=== PATIENT | male | born 1945 | race Caucasian/White ===

== ENCOUNTER 2021-04-30 11:08 | Emergency (ER) | payer MEDICARE ==
[~2021-04-30] VITALS: Ht 180.3 cm; Wt 66.2 kg
--- NOTE | 2021-04-30 11:33 | NUR ---
The patient is [id number] home c/o LLE/groin area pain s/p trip and fall last night. Rates pain 8/10. No apparent trauma noted. Will continue to monitor the patient.
--- NOTE | 2021-04-30 11:35 | NUR ---
DR DENNIS AT THE BEDSIDE
[2021-04-30 13:01] VITALS: BP 135/75
--- NOTE | 2021-04-30 13:01 | NUR ---
Patient discharged to home in stable condition. Written and verbal after care instructions given. Patient verbalizes understanding of instruction. The patient is picked up going home with .
[2021-05-07] MEDS ORDERED: ASPI-1169 PO (11:49)
[2021-05-07] MEDS ORDERED: LEVO250T59 PO (11:49)
[2021-05-07] MEDS ORDERED: Calcium Carb 600MG /Vit D PO (11:49)
[2021-05-07] MEDS ORDERED: MULT-24 PO (11:49)
[2021-05-07] MEDS ORDERED: ASCO500T21 PO (11:49)
[2021-05-07] MEDS ORDERED: Zinc Sulfate PO (11:49)
== END 2021-04-30 13:02 | disposition home or self-care (01) ==
LOC: ER 11:29
DX: S76.812A Strain of other specified muscles, fascia and tendons at thigh level, left thigh, initial encounter (principal); W01.0XXA Fall on same level from slipping, tripping and stumbling without subsequent striking against object, initial encounter; Y93.89 Activity, other specified; Y92.89 Other specified places as the place of occurrence of the external cause; Y99.8 Other external cause status
CPT/HCPCS: 73502; 73552

== ENCOUNTER 2021-05-05 09:10 | Inpatient (IN) | payer MEDICARE, BC ==
[~2021-05-05] VITALS: Ht 180.3 cm; Wt 63.6 kg
--- NOTE | 2021-05-05 09:24 | NUR ---
TO ER BED 4, FROM HOME C/O LEFT HIP AND LEG PAIN S/P FALL 1 WK AGO, AAOX3, BREATHING EVEN AND NON LABORED, CONNECTED TO MONITOR, SEEN BY DR JAMES.
--- NOTE | 2021-05-05 09:32 | NUR ---
TAKEN TO CT
--- NOTE | 2021-05-05 10:26 | NUR ---
SALINE LOCK ESTABLISHED, BLOOD DRAWN, AND PICKED UP BY LAB
[2021-05-05 10:39] LABS: BASOPHILS # (AUTO) 0.1 K/uL (0.0-0.2); BASOPHILS % (AUTO) 1.2 % (0.0-2.0); EOSINOPHILS % (AUTO) 4.2 % (0.0-6.0); HEMATOCRIT 43 % (39-51); HEMOGLOBIN 14.4 g/dL (13.5-17.5); LYMPHOCYTES % (AUTO) 14.8 % (20.0-44.0); MEAN CORPUSCULAR HGB CONC 33 g/dl (31.0-36.0); MEAN CORPUSCULAR VOLUME 96 fL (80-96); MONOCYTES % (AUTO) 14.2 % (2.0-12.0); NEUTROPHILS # (AUTO) 4.6 K/uL (1.8-8.9); NEUTROPHILS % (AUTO) 65.6 % (43.0-81.0); PLATELET COUNT (AUTO) 206 K/uL (150-450); RED BLOOD CELL COUNT(AUTO) 4.52 MIL/uL (4.5-6.0)
--- NOTE | 2021-05-05 10:47 | NUR ---
COVID TEST TAKEN AND SENT TO LAB
[2021-05-05 10:49] LABS: CALCIUM, SERUM 8.9 mg/dL (8.5-10.1); CREATININE 0.8 mg/dL (0.6-1.3); POTASSIUM 4.2 mmol/L (3.5-5.1)
--- NOTE | 2021-05-05 10:57 | NUR ---
PANEL FLOWER BUNCHER OR PICKER PAGED
[2021-05-05] MEDS ORDERED: ACETAMINOPHEN ES 500 MG TABLET ONE (11:58)
[2021-05-05] MEDS ORDERED: ACETAMINOPHEN ES 500 MG TABLET PO ONE (12:00)
--- NOTE | 2021-05-05 12:41 | NUR ---
ROOM 313-1
--- NOTE | 2021-05-05 13:01 | NUR ---
REPORT GIVEN TO JULEE SALAZAR FOR SHELL
--- NOTE | 2021-05-05 13:10 | NUR ---
PT TRANSFER TO 313 VIA HOSPITAL PROTOCOL. BELONGINGS WITH PT. VSS
[2021-05-05 13:20] VITALS: BP 122/83
--- NOTE | 2021-05-05 13:20 | NUR ---
MS ACCOUNTS RECEIVABLE MANAGER NOTES RECEIVED PATIENT FROM ER VIA [facility], AWAKE, A/O X4. ON ROOM AIR TOLERATING WELL. NO SOB NOTED. NOT IN DISTRESS. WITH NO COMPLAINTS OF PAIN AT THIS TIME. WITH IV ACCESS AT THE RIGHT FOREARM G20 SALINE LOCKED, PATENT AND INTACT. SKIN ASSESSMENT IS DONE-INTACT. PATIENT IS FOR SURGERY TOMORROW FOR LEFT TOTAL HIP ARTHROPLASTY/REPLACEMENT WITH DR. ZEE. FOR NPO POST MIDNIGHT. MADE COMFORTABLE ON BED. SAFETY MEASURES IN PLACE. CALL LIGHT WITHIN REACH. BED ON LOWEST AND LOCKED POSITION, SIDE RAILS UP X2. WILL CONTINUE TO MONITOR.
[2021-05-05] MEDS ORDERED: ENOXAPARIN SODIUM 40 MG/0.4 ML DISP.SYRIN SQ ONE (14:30)
[2021-05-05 16:03] VITALS: BP 122/83
[2021-05-05] MEDS ORDERED: ONDANSETRON HCL/PF 4 MG/2 ML VIAL IVP PRN (16:30)
[2021-05-05] MEDS ORDERED: MORPHINE SULFATE INJ 2 MG/ML DISP.SYRIN IV PRN (16:30)
[2021-05-05] MEDS ORDERED: ENOXAPARIN SODIUM 40 MG/0.4 ML DISP.SYRIN SQ SCH ×2 (16:30→21:00)
[2021-05-05] MEDS ORDERED: Z GUARD REMEDY 2 OZ OINT TP PRN (16:30)
[2021-05-05] MEDS ORDERED: ACETAMINOPHEN 325 MG TABLET PO PRN (16:30)
--- NOTE | 2021-05-05 18:25 | NUR ---
MS RN NOTES PATIENT PROVIDED A COPY OF THE MRI LEFT HIP WITHOUT CONTRAST RESULT FROM [facility]. IT WAS DONE ON 05/02/21. WILL INFORM THE DOCTOR. WILL ENDORSE TO NEXT SHIFT.
--- NOTE | 2021-05-05 18:37 | NUR ---
MS RN CLOSING NOTES PATIENT RESTING ON BED AND A/O X4. ON ROOM AIR TOLERATING WELL WITH SPO2 AT 98%. NO SOB NOTED. NOT IN DISTRESS. WITH NO COMPLAINTS OF PAIN AT THIS TIME. WITH IV ACCESS AT RIGHT FOREARM G20 SALINE LOCKED, PATENT AND INTACT. FOR SURGERY TOMORROW AT 1400 (05/06/21). FOR NPO POST MIDNIGHT. CONSENT FOR SURGERY, ANESTHESIA AND BLOOD TRANSFUSION HAS BEEN SIGNED. SAFETY MEASURES IN PLACE. CALL LIGHT WITHIN REACH. BED ON LOWEST AND LOCKED POSITION, SIDE RAILS UP X2. WILL ENDORSE TO NEXT SHIFT FOR SHELL.
--- NOTE | 2021-05-05 18:49 | NUR ---
PRELIMINARY RESULT OF DUPLEX VENOUS LOWER EXTREMITY BILATERAL U/S SHOWED NEGATIVE FOR DVT. INCIDENTAL FINDING SHOWED RT SFA PROX, MID AND DISTAL ARE FULLY OCCLUDED. FINDINGS RELAYED TO ATTENDING RN.
--- NOTE | 2021-05-05 19:31 | NUR ---
RN notes Pt is complaining of pain on L hip and requesting tylenol. Pt and Pt's stated "I only take tylenol!' Pt's and son at the bedside. Pt's confirmed Pt only take tylenol for pain. Administered tylenol 325 mg/ 2 tabs as ordered for pain per pt's request. Safety precautions is maintained. Will continue to monitor.
--- NOTE | 2021-05-05 19:40 | NUR ---
RN ms opening notes Received Pt from morning nurse. Pt is sitting in bed comfortably accompanied by family at the bedside. Pt is alert and orientedX4. Respiration is normal in room air. No SOB. No S/S of distress noted. Vs is stable. IV sites at RFA# 20 is clean, intact and flushes well. Safety precautions is maintained. Bed at low position, brakes locked, side rails upX2, bed alarm is on and call light is within reach. Will continue to monitor.
[2021-05-05 20:00] VITALS: BP 125/86
[2021-05-05] MEDS: IV D5/0.45 NACL 1,000 ML IV PRN (20:54)
[2021-05-05] MEDS ORDERED: ZOLPIDEM TARTRATE 5 MG TABLET PO PRN (21:30)
--- NOTE | 2021-05-05 21:30 | NUR ---
RN notes Pt is having insomnia and requesting a sleeping pill. Informed and notified MD. ordered ambien 5mg/po/prn. Order carried out.
--- NOTE | 2021-05-05 21:53 | NUR ---
RN notes Pt is having insomnia and requesting a sleeping pill. Administered ambien 5mg/ po/prn. Safety precautions is maintained. Will continue to monitor.
[2021-05-06] VITALS (11 sets, daily range): BP systolic 114–141; BP diastolic 69–87
--- NOTE | 2021-05-06 03:10 | NUR ---
RN notes Collected UA from Pt. Gave UA to lab techician.
[2021-05-06 04:42] LABS: BILIRUBIN,URINE NEGATIVE (NEGATIVE); COLOR,URINE YELLOW (YELLOW); LEUKOCYTE ESTERASE ,URINE LARGE (NEGATIVE); NITRITE, URINE POSITIVE (NEGATIVE); PROTEIN,URINE NEGATIVE (NEGATIVE); UGLUCOSE NEGATIVE (NEGATIVE); UROBILINOGEN,URINE 0.2 EU/dL (0.2)
[2021-05-06 05:17] LABS: BACTERIA,URINE Many /HPF (None Seen); SQUAMOUS EPITHELIAL CELL,UR Few /HPF (None Seen); WBC,URINE 81-100 /HPF (0-3)
--- NOTE | 2021-05-06 06:42 | NUR ---
RN ms closing notes Pt is resting in bed comfortably. Pt is alert and orientedX4. Respiration is normal in room air. No SOB. No S/S of distress noted. Vs is stable. IV sites at RFA# 20 is clean, intact and flushes well. Safety precautions is maintained. Bed at low position, brakes locked, side rails upX2, bed alarm is on and call light is within reach. Will endorse to am nurse for SHELL.
[2021-05-06 06:44] LABS: BASOPHILS # (AUTO) 0.1 K/uL (0.0-0.2); EOSINOPHILS % (AUTO) 4.2 % (0.0-6.0); HEMATOCRIT 41 % (39-51); HEMOGLOBIN 13.7 g/dL (13.5-17.5); LYMPHOCYTES % (AUTO) 14.8 % (20.0-44.0); MEAN CORPUSCULAR HGB CONC 34 g/dl (31.0-36.0); MEAN CORPUSCULAR VOLUME 95 fL (80-96); MONOCYTES # (AUTO) 0.7 K/uL (0.1-1.30); MONOCYTES % (AUTO) 10.7 % (2.0-12.0); NEUTROPHILS # (AUTO) 4.5 K/uL (1.8-8.9); NEUTROPHILS % (AUTO) 69.3 % (43.0-81.0); PLATELET COUNT (AUTO) 213 K/uL (150-450); RED BLOOD CELL COUNT(AUTO) 4.28 MIL/uL (4.5-6.0); WHITE BLOOD COUNT (AUTO) 6.5 K/uL (4.3-11.0)
[2021-05-06 06:56] LABS: CALCIUM, SERUM 8.5 mg/dL (8.5-10.1); CREATININE 0.9 mg/dL (0.6-1.3); MAGNESIUM 2.1 mg/dL (1.8-2.4); PHOSPHORUS 2.8 mg/dL (2.5-4.9); POTASSIUM 3.7 mmol/L (3.5-5.1)
--- NOTE | 2021-05-06 08:00 | NUR ---
m/s employment clerk: initial assessment received pt in bed awake, a/ox3-4 with forgetfulness. bed alarm on for safety. pt c/o left hip pain, but refusing morphine when offered. remains npo since 0430am, for surgery this afternoon. consents in chart. instructed to call for assistance. will continue to monitor.
[2021-05-06] MEDS: CEPHALEXIN MONOHYDRATE 500 MG CAPSULE PO SCH ×2 (08:54→17:00)
--- NOTE | 2021-05-06 10:00 | NUR ---
m/s loader helper sorting yard: notes pt refusing log roll due to pain, unable to assess pt's behind. offered morphine, but still refuses. kept npo. will continue to monitor.
--- NOTE | 2021-05-06 11:00 | NUR ---
m/s spareribs trimmer: notes am care rendered by release engineer including chlorhexidine wash, but pt refusing to be turned from side to side to clean his behind, staff unable to assess behind at this time. also pt offered morphine for pain, but refusing, stating, "i get cook cook."
[2021-05-06] MEDS ORDERED: POLYMYXIN B SULFATE 0 UNITS ONE (14:07)
[2021-05-06] MEDS ORDERED: ANESTHESIA TRAY IN PYXIS 1 EA TRAY MC ONE (14:08)
[2021-05-06] MEDS ORDERED: BUPIVACAINE 0.5 % PF 150 MG/30 ML VIAL ONE (14:08)
[2021-05-06] MEDS ORDERED: VANCOMYCIN 1 GM VIAL ONE (14:08)
[2021-05-06] MEDS: IV D5/0.45 NACL 1,000 ML IV PRN (14:14)
[2021-05-06] MEDS ORDERED: TRANEXAMIC ACID 1,000 MG in IV NS 0.9% 100 ML IV ONE ×2 (14:30→17:00)
--- NOTE | 2021-05-06 14:30 | NUR ---
m/s cafe helper: notes picked up by o.r. team via bed accompanied by 2 nurses at this time.
[2021-05-06] MEDS ORDERED: ROCURONIUM BROMIDE 50 MG/5 ML ONE ×2 (14:44→17:12)
[2021-05-06] MEDS ORDERED: FENTANYL PF 250MCG/5ML AMPUL ONE (14:44)
[2021-05-06] MEDS ORDERED: LIDOCAINE 1% INJ 50 ML MDV IJ ONE (14:46)
[2021-05-06] MEDS ORDERED: LABETALOL HCL IV 100MG VIAL ONE (16:14)
[2021-05-06] MEDS ORDERED: MORPHINE SULFATE/PF 10 MG/10ML (1MG/ML) AMPUL ONE (18:11)
[2021-05-06] MEDS ORDERED: MORPHINE SULFATE INJ 4 MG/ML DISP.SYRIN ONE (18:11)
[2021-05-06] MEDS ORDERED: HYDROCODONE/APAP 5/325MG TABLET PO PRN ×2 (19:00)
--- NOTE | 2021-05-06 19:00 | NUR ---
m/s portrait artist: notes pt still not in the unit. report given to fawn (rn) for continuity of care. son came up and informed us that everything went well.
[2021-05-06] MEDS ORDERED: FENTANYL PF 100MCG/2ML AMPUL ONE (19:19)
--- NOTE | 2021-05-06 20:05 | NUR ---
RN OPENING NOTES ( RECEIVED FROM O.R) RECEIVED PATIENT FROM O.R, ACCOMPANIED BY MARIE GARCIA [facility]IA [facility] AND RECEIVED REPORT FROM JOSE. PATIENT S/P LEFT HIP ARTHROPLASTY, WITH DRY DRESSING IN PLACED. NO S/SX OF BLEEDING AT THE SITE. IN NO APPARENT DISTRESS NOTED, BREATHING EVEN AND UNLABORED. ON R.A, ADARSH. WELL. NO S/SX OF PAIN AND DISCOMFORT AT THIS TIME. PATIENT WITH IV AT RFA G#20, INTACT AND INFUSING WELL WITH IV RUNNING D5 1/2 NS AT 75 ML/HR. PATIENT WITH MENDEZ CATHETER, PATENT DRAINING WITH YELLOWISH URINE. ICE PACKED APPLIED ON LEFT HIP ANTERIOR SITE. SCD IN PLACED ON BILATERAL LOWER EXT. RECEIVED ORDER FROM DR. LITTLEJOHN NOTED AND CARRIED OUT. V/S TAKEN AND RECORDED, IN STABLE CONDITION. FAMILY AT THE BEDSIDE, POST OP TEACHING PROVIDED WITH THE PATIENT AND FAMILY AND EXPRESSED UNDERSTANDING AND APPRECIATION. PLACE PATENT IN COMFORTABLE POSITION. SAFETY MEASURES IN PLACED. BED PLACED IN LOWEST LOCKED POSITION WITH S.R UP X2. CALL LIGHT AND BEDSIDE TABLE WITHIN EASY REACH. WILL CONTINUE TO MONITOR PATIENT ACCORDINGLY
[2021-05-06 20:12] LABS: HEMOGLOBIN 12.8 g/dL (13.5-17.5)
[2021-05-06] MEDS ORDERED: VANCOMYCIN 1 GM in IV D5W 250ml IV ONE (21:00)
[2021-05-06] MEDS: CEFAZOLIN 2 GM in IV D5W 100 ML IV SCH (21:34)
[2021-05-06] MEDS ORDERED: ZINC SULFATE 220 MG CAPSULE PO SCH (22:00)
[2021-05-06] MEDS ORDERED: MISCELLANEOUS MED 1 EA EA MC ONE (22:00)
[2021-05-06] MEDS: LEVOFLOXACIN (250MG) 250 MG TABLET PO SCH (22:44)
--- NOTE | 2021-05-06 23:19 | NUR ---
RN NOTES PATIENT C/O LEFT HIP PAIN WITH P.S OF 01/28, NORCO 5-325 MG 2 TABS. GIVEN PRN DOSE AT 2303 H, WILL CONTINUE TO MONITOR PATIENT ACCORDINGLY
--- NOTE | 2021-05-06 23:30 | NUR ---
RN notes Pt is complaining of L pain and requesting pain meds. Administered norco 5/ 2tabs/ po/prn for pain. Ice pack is applied. VS is stable. Safety precautions is maintained. Will continue to monitor.
--- NOTE | 2021-05-07 01:30 | NUR ---
RN ms notes Pt is sleeping comfortably. Respiration is normal. No SOB. VS is stable. No S/S of distress noted. Will continue to monitor.
[2021-05-07] MEDS: CEFAZOLIN 2 GM in IV D5W 100 ML IV SCH (05:08)
[2021-05-07 06:27] LABS: HEMATOCRIT 35 % (39-51); HEMOGLOBIN 11.8 g/dL (13.5-17.5); LYMPHOCYTES # (AUTO) 0.6 K/uL (0.8-4.8); LYMPHOCYTES % (AUTO) 4.7 % (20.0-44.0); MEAN CORPUSCULAR HGB CONC 33 g/dl (31.0-36.0); MEAN CORPUSCULAR VOLUME 95 fL (80-96); MONOCYTES # (AUTO) 1.1 K/uL (0.1-1.30); MONOCYTES % (AUTO) 8.9 % (2.0-12.0); NEUTROPHILS # (AUTO) 10.6 K/uL (1.8-8.9); NEUTROPHILS % (AUTO) 86.4 % (43.0-81.0); PLATELET COUNT (AUTO) 219 K/uL (150-450); RED BLOOD CELL COUNT(AUTO) 3.73 MIL/uL (4.5-6.0); WHITE BLOOD COUNT (AUTO) 12.2 K/uL (4.3-11.0)
--- NOTE | 2021-05-07 06:33 | NUR ---
RN CLOSING NOTES PATIENT ON BED AWAKE A/O X 3-4. IN NO APPARENT DISTRESS NOTED, BREATHING EVEN AND UNLABORED. ON R.A, ADARSH. WELL. NO S/SX OF PAIN AND DISCOMFORT AT THIS TIME. PATIENT WITH IV AT RFA G#20, INTACT AND INFUSING WELL WITH IV RUNNING D5 1/2 NS AT 75 ML/HR. PATIENT WITH MENDEZ CATHETER, PATENT DRAINING WITH YELLOWISH URINE. ICE PACKED APPLIED ON LEFT HIP ANTERIOR SITE. SCD IN PLACED ON BILATERAL LOWER EXT. SAFETY MEASURES IN PLACED. BED PLACED IN LOWEST LOCKED POSITION WITH S.R UP X2. CALL LIGHT AND BEDSIDE TABLE WITHIN EASY REACH. WILL ENDORSED PATIENT TO DAY SHIFT NURSE FOR SHELL.
[2021-05-07 07:00] LABS: CREATININE 0.9 mg/dL (0.6-1.3); MAGNESIUM 1.9 mg/dL (1.8-2.4); PHOSPHORUS 3.3 mg/dL (2.5-4.9); POTASSIUM 4.3 mmol/L (3.5-5.1)
[2021-05-07 08:00] VITALS: BP 129/77
--- NOTE | 2021-05-07 08:09 | NUR ---
RN OPENING NOTE PATIENT IN ROOM RESTING, AWAKE A/O X 4. NO S/S OF PAIN NOTED AT THIS TIME. IN ROOM AIR NO DISTRESS OR SHORTNESS OF BREATH. WELL. PATIENT WITH IV AT RFA G#20, INTACT AND INFUSING WELL. PATIENT WITH MENDEZ CATHETER, PATENT DRAINING WITH YELLOWISH URINE. ICE PACKED ON LEFT HIP ANTERIOR SITE. SAFETY MEASURES IN PLACED. BED PLACED IN LOWEST LOCKED POSITION, SIDE RAIL UP X2. CALL LIGHT AND BEDSIDE TABLE WITHIN EASY REACH. WILL CONTINUE TO MONITOR.
[2021-05-07] MEDS ORDERED: ASPIRIN 81 MG TAB.CHEW PO SCH (09:00)
[2021-05-07] MEDS ORDERED: CALCIUM CARB 600MG /VIT D 1 EACH TABLET PO SCH (09:00)
[2021-05-07] MEDS ORDERED: ASCORBIC ACID 500 MG TABLET PO SCH (09:00)
[2021-05-07] MEDS ORDERED: MULTIVITAMINS,THERAGRAN 1 UDTAB TABLET PO SCH (09:00)
[2021-05-07] MEDS ORDERED: CEPHALEXIN MONOHYDRATE 500 MG CAPSULE PO SCH (09:00)
[2021-05-07] MEDS: LEVOFLOXACIN (250MG) 250 MG TABLET PO SCH (09:23)
[2021-05-07] MEDS: ENSURE ENLIVE CHOC 237 ML CAN PO SCH ×2 (09:25→12:09)
[2021-05-07] MEDS ORDERED: ASCO500T21 PO (11:49)
[2021-05-07] MEDS ORDERED: Calcium Carb 600MG /Vit D PO (11:49)
[2021-05-07] MEDS ORDERED: ASPI-1169 PO (11:49)
[2021-05-07] MEDS ORDERED: MULT-24 PO (11:49)
[2021-05-07] MEDS ORDERED: Zinc Sulfate PO (11:49)
[2021-05-07] MEDS ORDERED: LEVO250T59 PO (11:49)
--- NOTE | 2021-05-07 16:52 | NUR ---
WAX CUTTER NOTE PT DISCHARGED HOME WITH HOME HEALTH. [facility]. NEW PRESCRIPTIONS VERIFIED AND EDUCATION GIVEN TO PT. EXITCARE EDUCATION UTILIZED AND GIVEN TO PT. IV LINES REMOVED. ID BAND REMOVED. NO SKIN, SURGICAL INCISION PRESENT ON L HIP. DRESSING TO BE CHANGED BY MD. PT IN STABLE CONDITION. NO COMPLAINT OF PAIN. WALKER GIVEN TO PT. FAMILY AWARE. PT TRANSPORTED HOME VIA PRIVATE CAR ACCOMPANIED BY FAMILY. F/U WITH DR LITTLEJOHN IN 1-2 WEEKS.
[2021-05-07] MEDS ORDERED: ENOXAPARIN SODIUM 40 MG/0.4 ML DISP.SYRIN SQ SCH (21:00)
== END 2021-05-07 17:00 | disposition home health service (06) | DRG 522 ==
LOC: ER 09:19 → MED 12:44
PROVIDERS: ADMIT Nurse Practitioner Acute Care; ATTEND Registered Nurse
PROC: 0SRB0JZ Replacement of Left Hip Joint with Synthetic Substitute, Open Approach (ICD-10-PCS; principal; 2021-05-06)
DX: S72.002A Fracture of unspecified part of neck of left femur, initial encounter for closed fracture (principal); N39.0 Urinary tract infection, site not specified; W18.30XA Fall on same level, unspecified, initial encounter; Y93.9 Activity, unspecified; Y92.009 Unspecified place in unspecified non-institutional (private) residence as the place of occurrence of the external cause; I77.1 Stricture of artery; Z20.822 Contact with and (suspected) exposure to COVID-19
CPT/HCPCS: 36415; 71045-TC; 72170-TC; 72192-TC; 73020; 73060-TC; 80048-TC; 80061-TC; 81001; 83735-TC; 84100-TC; 85025-TC; 85027-TC; 85730-TC; 86850-TC; 87081-TC; 87086-TC; 88305-TC; 88311-TC; 93970-TC; 97116-TC; 97530-TC; A4217; A6209; A6253; C1713; C1776; C9803; G0378; J0461; J0690; J1100; J1650; J2270; J2274; J2405; J3010; J3370; J3490; J7030; J7060

== ENCOUNTER 2021-05-12 17:42 | Emergency (ER) | payer MEDICARE, BC ==
[~2021-05-12] VITALS: Ht 180.3 cm; Wt 74.8 kg
[~2021-05-12 17:42] MED LIST: ASCO500T21 PO; ASPI-1169 PO; Calcium Carb 600MG /Vit D PO; LEVO250T59 PO; MULT-24 PO; Zinc Sulfate PO
--- NOTE | 2021-05-12 18:11 | NUR ---
TO ER BED 8, C/O LEFT ANKLE SWELLING AND ON & OFF PAIN,S/P L HIP SX 5 DAYS AGO, AAOX3, BREATHING EVEN AND NON LABORED, CONNECTED TO MONITOR, AWAITING MD ORDERS
--- NOTE | 2021-05-12 20:10 | NUR ---
OLDER ADULT SOCIAL WORK SPECIALIST AT PT'S BEDSIDE
--- NOTE | 2021-05-12 20:19 | NUR ---
ASSOCIATE RESEARCH SCIENTIST AT PT'S BEDSIDE
[2021-05-12 20:24] LABS: BASOPHILS # (AUTO) 0.1 K/uL (0.0-0.2); BASOPHILS % (AUTO) 0.9 % (0.0-2.0); EOSINOPHILS % (AUTO) 4.4 % (0.0-6.0); HEMATOCRIT 33 % (39-51); HEMOGLOBIN 11.1 g/dL (13.5-17.5); LYMPHOCYTES # (AUTO) 1.3 K/uL (0.8-4.8); MEAN CORPUSCULAR HGB CONC 33 g/dl (31.0-36.0); MEAN CORPUSCULAR VOLUME 95 fL (80-96); MONOCYTES % (AUTO) 10.4 % (2.0-12.0); NEUTROPHILS # (AUTO) 6.7 K/uL (1.8-8.9); NEUTROPHILS % (AUTO) 70.3 % (43.0-81.0); PLATELET COUNT (AUTO) 400 K/uL (150-450); RED BLOOD CELL COUNT(AUTO) 3.51 MIL/uL (4.5-6.0); WHITE BLOOD COUNT (AUTO) 9.5 K/uL (4.3-11.0)
[2021-05-12 20:41] LABS: CALCIUM, SERUM 8.6 mg/dL (8.5-10.1); CREATININE 0.8 mg/dL (0.6-1.3); POTASSIUM 3.8 mmol/L (3.5-5.1)
[2021-05-12 21:07] VITALS: BP 126/76
--- NOTE | 2021-05-12 21:07 | NUR ---
Patient discharged to home in stable condition. Written and verbal after care instructions given. Patient verbalizes understanding of instruction. Pt ambulated out of ED. VSS.
== END 2021-05-12 21:08 | disposition home or self-care (01) ==
LOC: ER 17:51
DX: G89.18 Other acute postprocedural pain (principal); R60.0 Localized edema; Z79.899 Other long term (current) drug therapy
CPT/HCPCS: 36415; 71045-TC; 73502; 80048-TC; 85025-TC; 93971-TC

== ENCOUNTER 2023-12-21 17:26 | Inpatient (IN) | payer BC, MEDICARE ==
[~2023-12-21] VITALS: Ht 180.3 cm; Wt 59.0 kg
[2023-12-21 18:37] LABS: BASOPHILS % (AUTO) 0.3 % (0.0-2.0); EOSINOPHILS % (AUTO) 0.2 % (0.0-6.0); HEMATOCRIT 41 % (39-51); HEMOGLOBIN 13.5 g/dL (13.5-17.5); LYMPHOCYTES # (AUTO) 0.7 K/uL (0.8-4.8); LYMPHOCYTES % (AUTO) 5.9 % (20.0-44.0); MEAN CORPUSCULAR HEMOGLOBIN 31 PG (26.0-33.0); MEAN CORPUSCULAR HGB CONC 33 g/dl (31.0-36.0); MEAN CORPUSCULAR VOLUME 92 fL (80-96); MONOCYTES # (AUTO) 1.1 K/uL (0.1-1.30); MONOCYTES % (AUTO) 9.2 % (2.0-12.0); NEUTROPHILS # (AUTO) 9.8 K/uL (1.8-8.9); NEUTROPHILS % (AUTO) 84.4 % (43.0-81.0); PLATELET COUNT (AUTO) 262 K/uL (150-450); RED BLOOD CELL COUNT(AUTO) 4.43 MIL/uL (4.5-6.0); RED CELL DISTRIBUTION WIDTH 13.2 % (11.5-15.0); WHITE BLOOD COUNT (AUTO) 11.6 K/uL (4.3-11.0)
[2023-12-21] MEDS ORDERED: ACETAMINOPHEN ES 500 MG TABLET ONE (18:44)
[2023-12-21] MEDS ORDERED: IBUPROFEN 600 MG TABLET ONE (18:44)
[2023-12-21] MEDS: IV NS 0.9% 1,000 ML BAG IV ONE (18:49)
[2023-12-21 18:51] LABS: CALCIUM, SERUM 8.6 mg/dL (8.5-10.1); CARBON DIOXIDE 25 mmol/L (21-32); CHLORIDE 102 mmol/L (98-107); CREATININE 0.8 mg/dL (0.6-1.3); GLUCOSE 98 mg/dL (74-106); POTASSIUM 4.1 mmol/L (3.5-5.1); SODIUM SERUM 132 mmol/L (136-145); UREA NITROGEN, BLOOD 21 mg/dL (7-18)
[2023-12-21] MEDS: IBUPROFEN 600 MG TABLET PO ONE (18:51)
[2023-12-21] MEDS: ACETAMINOPHEN ES 500 MG TABLET PO ONE (18:51)
[2023-12-21 18:56] LABS: LACTIC ACID 0.8 mmol/L (0.4-2.0)
[2023-12-21 18:57] LABS: INR 1.37 (0.91-1.10); PARTIAL THROMBOPLASTIN TIME 35.2 SEC (24.3-34.3); PROTHROMBIN TIME 13.9 SECS (9.2-11.1)
[2023-12-21 19:01] LABS: APPEARANCE,URINE Cloudy (CLEAR); BILIRUBIN,URINE Negative (NEGATIVE); BLOOD, URINE Moderate Ery/uL (NEGATIVE); COLOR,URINE YELLOW (YELLOW); KETONES,URINE Negative (NEGATIVE); LEUKOCYTE ESTERASE ,URINE Negative (NEGATIVE); NITRITE, URINE Negative (NEGATIVE); PROTEIN,URINE Negative (NEGATIVE); UGLUCOSE Negative (NEGATIVE)
[2023-12-21 19:03] LABS: ALANINE AMINOTRANSFERASE 78 U/L (12-78); ALBUMIN 2.2 g/dL (3.4-5.0); ALKALINE PHOSPHATASE 78 U/L (46-116); ASPARTATE AMINOTRANSFERASE 56 U/L (15-37); BILIRUBIN,DIRECT 0.2 mg/dL (0.0-0.2); BILIRUBIN,TOTAL 0.5 mg/dL (0.2-1.0); TOTAL PROTEIN, SERUM 6.9 g/dL (6.4-8.2)
[2023-12-21 19:30] LABS: ADD URINE CULTURE NO; BACTERIA,URINE Rare /HPF (None Seen); RBC,URINE 81-100 /HPF (0-2); SQUAMOUS EPITHELIAL CELL,UR Rare /HPF (None Seen); WBC,URINE 0-2 /HPF (0-3)
[2023-12-21] MEDS ORDERED: CEFEPIME 1 GM VIAL ONE (20:33)
[2023-12-21] MEDS: CEFEPIME 1 GM in IV D5W 50 ML IV ONE (20:38)
[2023-12-21] MEDS ORDERED: ONDANSETRON HCL/PF 4 MG/2 ML VIAL IVP PRN (21:00)
[2023-12-21] MEDS ORDERED: MAG HYDROX/AL HYDROX/SIMETH 30 ML UDC PO PRN (21:00)
[2023-12-21] MEDS ORDERED: MAGNESIUM HYDROXIDE 30 ML UDC PO PRN (21:00)
[2023-12-21] MEDS: IV NS 0.9% 1,000 ML IV SCH (22:20)
[2023-12-21 23:13] VITALS: BP 128/65; TEMP 99.7; O2SAT 95
[2023-12-22 07:16] LABS: BASOPHILS % (AUTO) 0.4 % (0.0-2.0); EOSINOPHILS % (AUTO) 0.2 % (0.0-6.0); HEMATOCRIT 37 % (39-51); HEMOGLOBIN 12.3 g/dL (13.5-17.5); LYMPHOCYTES # (AUTO) 0.9 K/uL (0.8-4.8); MEAN CORPUSCULAR HEMOGLOBIN 31 PG (26.0-33.0); MEAN CORPUSCULAR HGB CONC 34 g/dl (31.0-36.0); MEAN CORPUSCULAR VOLUME 94 fL (80-96); MONOCYTES # (AUTO) 1.2 K/uL (0.1-1.30); MONOCYTES % (AUTO) 11.8 % (2.0-12.0); NEUTROPHILS # (AUTO) 7.8 K/uL (1.8-8.9); NEUTROPHILS % (AUTO) 78.6 % (43.0-81.0); PLATELET COUNT (AUTO) 253 K/uL (150-450); RED BLOOD CELL COUNT(AUTO) 3.91 MIL/uL (4.5-6.0); RED CELL DISTRIBUTION WIDTH 13.2 % (11.5-15.0)
[2023-12-22 07:41] LABS: CALCIUM, SERUM 7.7 mg/dL (8.5-10.1); CREATININE 0.7 mg/dL (0.6-1.3); MAGNESIUM 2.2 mg/dL (1.8-2.4); PHOSPHORUS 2.4 mg/dL (2.5-4.9); POTASSIUM 3.9 mmol/L (3.5-5.1)
[2023-12-22 08:00] VITALS: BP 117/67; TEMP 98.2; O2SAT 97
[2023-12-22] MEDS: CEFEPIME 1 GM in IV D5W 50 ML IV SCH (09:17)
[2023-12-22] MEDS: ACETAMINOPHEN 325 MG TABLET PO PRN (09:17)
[2023-12-22 12:15] LABS: THYROID STIMULATING HORMONE 2.51 uIU/mL (0.358-3.74)
[2023-12-22] MEDS: K PHOS NEUTRAL 250 MG TABLET PO ONE (15:46)
[2023-12-22 16:00] VITALS: BP 120/60; TEMP 98.6; O2SAT 96
[2023-12-22] MEDS: ENSURE ENLIVE CHOC 237 ML CAN PO SCH (17:07)
[2023-12-22 20:00] VITALS: BP 132/64; TEMP 98.4; TEMP 99.5; O2SAT 94
[2023-12-23 06:06] VITALS: O2SAT 99
[2023-12-23] MEDS: Z GUARD REMEDY 4 OZ OINT TP PRN (06:17)
[2023-12-23 07:06] LABS: BASOPHILS % (AUTO) 0.5 % (0.0-2.0); EOSINOPHILS % (AUTO) 0.1 % (0.0-6.0); HEMATOCRIT 37 % (39-51); LYMPHOCYTES # (AUTO) 0.6 K/uL (0.8-4.8); LYMPHOCYTES % (AUTO) 5.4 % (20.0-44.0); MEAN CORPUSCULAR HEMOGLOBIN 31 PG (26.0-33.0); MEAN CORPUSCULAR HGB CONC 33 g/dl (31.0-36.0); MEAN CORPUSCULAR VOLUME 94 fL (80-96); MONOCYTES # (AUTO) 1.1 K/uL (0.1-1.30); NEUTROPHILS # (AUTO) 9.1 K/uL (1.8-8.9); PLATELET COUNT (AUTO) 201 K/uL (150-450); RED CELL DISTRIBUTION WIDTH 13.4 % (11.5-15.0); WHITE BLOOD COUNT (AUTO) 10.8 K/uL (4.3-11.0)
[2023-12-23 07:30] VITALS: BP 124/65; TEMP 100; O2SAT 96
[2023-12-23 07:42] LABS: CALCIUM, SERUM 8.2 mg/dL (8.5-10.1); CARBON DIOXIDE 22 mmol/L (21-32); CHLORIDE 103 mmol/L (98-107); CREATININE 0.8 mg/dL (0.6-1.3); GLUCOSE 94 mg/dL (74-106); POTASSIUM 3.8 mmol/L (3.5-5.1); SODIUM SERUM 133 mmol/L (136-145); UREA NITROGEN, BLOOD 14 mg/dL (7-18)
[2023-12-23 08:06] LABS: FOLIC ACID 5.8 ng/mL (>3.0)
[2023-12-23] MEDS: IV NS 0.9% 1,000 ML IV PRN (14:06)
[2023-12-23 20:00] VITALS: BP 148/80; TEMP 98.8; O2SAT 94
[2023-12-24 06:55] LABS: BASOPHILS % (AUTO) 0.2 % (0.0-2.0); HEMATOCRIT 38 % (39-51); HEMOGLOBIN 12.6 g/dL (13.5-17.5); LYMPHOCYTES # (AUTO) 0.5 K/uL (0.8-4.8); LYMPHOCYTES % (AUTO) 2.9 % (20.0-44.0); MEAN CORPUSCULAR HEMOGLOBIN 31 PG (26.0-33.0); MEAN CORPUSCULAR HGB CONC 33 g/dl (31.0-36.0); MEAN CORPUSCULAR VOLUME 92 fL (80-96); MONOCYTES # (AUTO) 1.2 K/uL (0.1-1.30); MONOCYTES % (AUTO) 7.8 % (2.0-12.0); NEUTROPHILS # (AUTO) 14.2 K/uL (1.8-8.9); NEUTROPHILS % (AUTO) 89.1 % (43.0-81.0); PLATELET COUNT (AUTO) 266 K/uL (150-450); RED BLOOD CELL COUNT(AUTO) 4.12 MIL/uL (4.5-6.0); RED CELL DISTRIBUTION WIDTH 13.7 % (11.5-15.0)
[2023-12-24 07:27] LABS: ALANINE AMINOTRANSFERASE 65 U/L (12-78); ALBUMIN 1.7 g/dL (3.4-5.0); ALKALINE PHOSPHATASE 94 U/L (46-116); ASPARTATE AMINOTRANSFERASE 40 U/L (15-37); BILIRUBIN,TOTAL 0.8 mg/dL (0.2-1.0); CALCIUM, SERUM 8.9 mg/dL (8.5-10.1); CARBON DIOXIDE 20 mmol/L (21-32); CHLORIDE 103 mmol/L (98-107); CREATININE 0.9 mg/dL (0.6-1.3); GLUCOSE 123 mg/dL (74-106); MAGNESIUM 2.5 mg/dL (1.8-2.4); PHOSPHORUS 3.1 mg/dL (2.5-4.9); POTASSIUM 4.2 mmol/L (3.5-5.1); SODIUM SERUM 135 mmol/L (136-145); TOTAL PROTEIN, SERUM 6.6 g/dL (6.4-8.2); UREA NITROGEN, BLOOD 24 mg/dL (7-18)
[2023-12-24 08:00] VITALS: BP 164/99; TEMP 98.2; O2SAT 99
[2023-12-24] MEDS ORDERED: IV NS 0.9% 250 ML IV ONE (11:14)
[2023-12-24] MEDS ORDERED: IOHEXOL-350 100 ML VIAL IV ONE (11:14)
[2023-12-24 16:00] VITALS: BP 127/76; TEMP 98.2; O2SAT 98
[2023-12-24] MEDS ORDERED: HEPARIN INFUSION/D5W 500 ML IV PRN ×2 (17:00→17:30)
[2023-12-24 18:25] LABS: INR 1.35 (0.91-1.10); PARTIAL THROMBOPLASTIN TIME 33.1 SEC (24.3-34.3)
[2023-12-24 20:00] VITALS: BP 126/75; TEMP 98.2; O2SAT 100
[2023-12-24] MEDS: TAMSULOSIN 0.4 MG CAP.SR.24H PO SCH (22:42)
[2023-12-25 05:24] VITALS: O2SAT 98
[2023-12-25 08:00] VITALS: BP 139/76; TEMP 98.2; O2SAT 95
[2023-12-25] MEDS: PROSOURCE / PROSTAT (PYXIS) 30 ML UDC PO SCH (13:00)
[2023-12-25 13:16] LABS: BASOPHILS % (AUTO) 0.4 % (0.0-2.0); EOSINOPHILS # (AUTO) 0.2 K/uL (0.0-0.7); EOSINOPHILS % (AUTO) 1.8 % (0.0-6.0); HEMATOCRIT 32 % (39-51); HEMOGLOBIN 11.2 g/dL (13.5-17.5); LYMPHOCYTES # (AUTO) 0.7 K/uL (0.8-4.8); LYMPHOCYTES % (AUTO) 6.4 % (20.0-44.0); MEAN CORPUSCULAR HEMOGLOBIN 32 PG (26.0-33.0); MEAN CORPUSCULAR HGB CONC 35 g/dl (31.0-36.0); MEAN CORPUSCULAR VOLUME 91 fL (80-96); MONOCYTES # (AUTO) 0.9 K/uL (0.1-1.30); MONOCYTES % (AUTO) 8.2 % (2.0-12.0); NEUTROPHILS # (AUTO) 9.5 K/uL (1.8-8.9); NEUTROPHILS % (AUTO) 83.2 % (43.0-81.0); PLATELET COUNT (AUTO) 269 K/uL (150-450); RED BLOOD CELL COUNT(AUTO) 3.54 MIL/uL (4.5-6.0); RED CELL DISTRIBUTION WIDTH 13.7 % (11.5-15.0); WHITE BLOOD COUNT (AUTO) 11.4 K/uL (4.3-11.0)
[2023-12-25 13:38] LABS: THYROID STIMULATING HORMONE 2.23 uIU/mL (0.358-3.74)
[2023-12-25 14:28] LABS: CALCIUM, SERUM 8.3 mg/dL (8.5-10.1); CARBON DIOXIDE 21 mmol/L (21-32); CHLORIDE 106 mmol/L (98-107); CREATININE 0.7 mg/dL (0.6-1.3); GLUCOSE 101 mg/dL (74-106); POTASSIUM 3.3 mmol/L (3.5-5.1); SODIUM SERUM 138 mmol/L (136-145); UREA NITROGEN, BLOOD 15 mg/dL (7-18)
[2023-12-25 16:00] VITALS: BP 131/72; TEMP 98.4; O2SAT 97
[2023-12-25 20:00] VITALS: BP 138/62; TEMP 98.5; TEMP 98.8; O2SAT 95
[2023-12-26 06:00] VITALS: O2SAT 99
[2023-12-26 08:00] VITALS: BP 135/81; TEMP 98.2; O2SAT 95
[2023-12-26] MEDS ORDERED: IV NS 0.9% 0 ML IV ONE (10:01)
[2023-12-26] MEDS ORDERED: IOHEXOL-350 100 ML VIAL IV ONE (10:01)
[2023-12-26] MEDS: POTASSIUM CHLORIDE 20 MEQ TAB.PRT.SR PO SCH (10:14)
[2023-12-26] MEDS: METOPROLOL TARTRATE 50 MG TABLET PO SCH (10:15)
[2023-12-26 16:00] VITALS: BP 130/72; TEMP 97.9; O2SAT 93
[2023-12-26 20:00] VITALS: BP 148/80; TEMP 98.7; O2SAT 96
[2023-12-26 20:53] VITALS: BP 148/80; TEMP 98.2; O2SAT 96
[2023-12-27 08:00] VITALS: BP 134/82; TEMP 97.9; O2SAT 97
[2023-12-27] MEDS ORDERED: METOPROLOL TARTRATE INJ 5 MG/5 ML AMPUL ONE (10:59)
[2023-12-27] MEDS ORDERED: NITROGLYCERIN 0.4 MG/TAB BOTTLE ONE (10:59)
[2023-12-27] MEDS ORDERED: IV NS 0.9% 250 ML IV ONE (10:59)
[2023-12-27] MEDS ORDERED: CT SWABBABLE VALVE TRANS SET 1 EA INFUS.SET MC ONE (10:59)
[2023-12-27] MEDS ORDERED: IOHEXOL-350 100 ML VIAL IV ONE (10:59)
[2023-12-27] MEDS ORDERED: Tamsulosin PO (11:00)
[2023-12-27] MEDS: METOPROLOL TARTRATE INJ 5 MG/5 ML AMPUL IVP PRN (11:00)
[2023-12-27] MEDS: NITROGLYCERIN 0.4 MG/TAB BOTTLE SL ONE (11:10)
[2023-12-27] MEDS ORDERED: ASPI-1169 PO (12:36)
[2023-12-27] MEDS ORDERED: ASPI-1420 PO (12:41)
[2023-12-27] MEDS: ASPIRIN EC 81 MG TABLET.DR PO SCH (13:18)
[2023-12-27 16:00] VITALS: BP 131/76; TEMP 97.5; O2SAT 98
== END 2023-12-27 19:20 | DRG 871 ==
LOC: ER 17:28 → MED 20:26
PROVIDERS: ATTEND Internal Medicine
DX: A41.9 Sepsis, unspecified organism (principal); E43 Unspecified severe protein-calorie malnutrition; E87.1 Hypo-osmolality and hyponatremia; Z68.1 Body mass index [BMI] 19.9 or less, adult; N13.6 Pyonephrosis; E86.0 Dehydration; E88.09 Other disorders of plasma-protein metabolism, not elsewhere classified; R54 Age-related physical debility; Z96.642 Presence of left artificial hip joint; N40.1 Benign prostatic hyperplasia with lower urinary tract symptoms; R33.8 Other retention of urine; Z20.822 Contact with and (suspected) exposure to COVID-19; M47.896 Other spondylosis, lumbar region; M48.07 Spinal stenosis, lumbosacral region; I73.89 Other specified peripheral vascular diseases; F17.210 Nicotine dependence, cigarettes, uncomplicated; M51.36 Other intervertebral disc degeneration, lumbar region; Z71.6 Tobacco abuse counseling; I25.10 Atherosclerotic heart disease of native coronary artery without angina pectoris; B96.89 Other specified bacterial agents as the cause of diseases classified elsewhere; N30.81 Other cystitis with hematuria; E87.6 Hypokalemia
CPT/HCPCS: 36415; 70450-TC; 71045-TC; 72131-TC; 75574; 80048-TC; 80053-TC; 80061-TC; 80076-TC; 81001; 82607-TC; 83605-TC; 83735-TC; 83921; 84100-TC; 84439-TC; 84443-TC; 84484-TC; 85025-TC; 85610-TC; 85730-TC; 87040-TC; 87086-TC; 93307-TC; 94760-TC; 94799-TC; 97110-TC; 97116-TC; 97530-TC; A4223; G0378; J0692; J1644; J3490; J7030; J7050; J7060; J7120; Q9967

== ENCOUNTER 2024-01-28 16:05 | Emergency (ER) | payer MEDICARE, BC ==
[~2024-01-28] VITALS: Ht 180.3 cm; Wt 70.3 kg
[~2024-01-28 16:05] MED LIST changes: -ASCO500T21 PO; -ASPI-1169 PO; +ASPI-1420 PO; -Calcium Carb 600MG /Vit D PO; -LEVO250T59 PO; -MULT-24 PO; +Tamsulosin PO; -Zinc Sulfate PO
[2024-01-28 17:13] LABS: APPEARANCE,URINE Cloudy (CLEAR); BILIRUBIN,URINE Negative (NEGATIVE); BLOOD, URINE Moderate Ery/uL (NEGATIVE); COLOR,URINE YELLOW (YELLOW); KETONES,URINE Negative (NEGATIVE); LEUKOCYTE ESTERASE ,URINE Large (NEGATIVE); NITRITE, URINE Positive (NEGATIVE); PH,URINE 6.5 (5.0-8.0); PROTEIN,URINE 30 mg/dl (NEGATIVE); UGLUCOSE Negative (NEGATIVE); UROBILINOGEN,URINE 0.2 EU/dL (0.2)
[2024-01-28 17:16] LABS: BASOPHILS # (AUTO) 0.1 K/uL (0.0-0.2); BASOPHILS % (AUTO) 0.4 % (0.0-2.0); EOSINOPHILS # (AUTO) 0.1 K/uL (0.0-0.7); EOSINOPHILS % (AUTO) 0.6 % (0.0-6.0); HEMATOCRIT 41 % (39-51); HEMOGLOBIN 13.2 g/dL (13.5-17.5); LYMPHOCYTES # (AUTO) 0.8 K/uL (0.8-4.8); LYMPHOCYTES % (AUTO) 6.5 % (20.0-44.0); MEAN CORPUSCULAR HEMOGLOBIN 29 PG (26.0-33.0); MEAN CORPUSCULAR HGB CONC 33 g/dl (31.0-36.0); MEAN CORPUSCULAR VOLUME 90 fL (80-96); MONOCYTES # (AUTO) 0.9 K/uL (0.1-1.30); MONOCYTES % (AUTO) 7.6 % (2.0-12.0); NEUTROPHILS # (AUTO) 10.6 K/uL (1.8-8.9); NEUTROPHILS % (AUTO) 84.9 % (43.0-81.0); PLATELET COUNT (AUTO) 253 K/uL (150-450); RED BLOOD CELL COUNT(AUTO) 4.54 MIL/uL (4.5-6.0); WHITE BLOOD COUNT (AUTO) 12.5 K/uL (4.3-11.0)
[2024-01-28 17:29] LABS: CALCIUM, SERUM 8.9 mg/dL (8.5-10.1); CARBON DIOXIDE 28 mmol/L (21-32); CHLORIDE 102 mmol/L (98-107); CREATININE 0.9 mg/dL (0.6-1.3); GLUCOSE 109 mg/dL (74-106); POTASSIUM 4.4 mmol/L (3.5-5.1); SODIUM SERUM 135 mmol/L (136-145); UREA NITROGEN, BLOOD 24 mg/dL (7-18)
[2024-01-28 17:34] LABS: ALANINE AMINOTRANSFERASE 29 U/L (12-78); ALBUMIN 2.8 g/dL (3.4-5.0); ALKALINE PHOSPHATASE 112 U/L (46-116); ASPARTATE AMINOTRANSFERASE 18 U/L (15-37); BILIRUBIN,DIRECT 0.1 mg/dL (0.0-0.2); BILIRUBIN,TOTAL 0.5 mg/dL (0.2-1.0); TOTAL PROTEIN, SERUM 7.9 g/dL (6.4-8.2)
[2024-01-28 17:39] LABS: LACTIC ACID 1.3 mmol/L (0.4-2.0)
[2024-01-28 17:41] LABS: ADD URINE CULTURE YES; BACTERIA,URINE 2+ /HPF (None Seen); SQUAMOUS EPITHELIAL CELL,UR Few /HPF (None Seen); WBC,URINE TOO NUMEROUS TO COUN /HPF (0-3)
[2024-01-28] MEDS ORDERED: CEFTRIAXONE 1GM BAG (ER ONLY) 50 ML IV ONE (19:25)
[2024-01-28] MEDS: CEFTRIAXONE 1GM BAG (ER ONLY) 1 GM/50 ML PIGGYBACK IV ONE (19:30)
[2024-01-28] MEDS ORDERED: CEPH500C2 PO (19:43)
[2024-01-28 19:54] VITALS: BP 128/66; TEMP 99; O2SAT 97
== END 2024-01-28 19:54 | disposition home or self-care (01) ==
LOC: ER 16:17
DX: N39.0 Urinary tract infection, site not specified (principal); N40.0 Benign prostatic hyperplasia without lower urinary tract symptoms; R53.1 Weakness; Z87.39 Personal history of other diseases of the musculoskeletal system and connective tissue; Z20.822 Contact with and (suspected) exposure to COVID-19
CPT/HCPCS: 99285; 96365; 71045; 87426; 93005; 85025; 80048; 87040 ×2; 87086; 83605; 80076; 81001; 36415; 84484; J0696

== ENCOUNTER 2024-02-06 02:54 | Emergency (ER) | payer MEDICARE, BC ==
[~2024-02-06] VITALS: Ht 180.3 cm; Wt 57.6 kg
[~2024-02-06 02:54] MED LIST changes: +CEPH500C2 PO
[2024-02-06 03:43] LABS: BASOPHILS # (AUTO) 0.1 K/uL (0.0-0.2); BASOPHILS % (AUTO) 0.9 % (0.0-2.0); EOSINOPHILS # (AUTO) 0.5 K/uL (0.0-0.7); HEMATOCRIT 38 % (39-51); HEMOGLOBIN 12.2 g/dL (13.5-17.5); LYMPHOCYTES # (AUTO) 1.3 K/uL (0.8-4.8); LYMPHOCYTES % (AUTO) 16.5 % (20.0-44.0); MEAN CORPUSCULAR HEMOGLOBIN 30 PG (26.0-33.0); MEAN CORPUSCULAR HGB CONC 33 g/dl (31.0-36.0); MEAN CORPUSCULAR VOLUME 91 fL (80-96); MONOCYTES # (AUTO) 0.9 K/uL (0.1-1.30); NEUTROPHILS # (AUTO) 5.3 K/uL (1.8-8.9); NEUTROPHILS % (AUTO) 65.6 % (43.0-81.0); PLATELET COUNT (AUTO) 234 K/uL (150-450); RED BLOOD CELL COUNT(AUTO) 4.11 MIL/uL (4.5-6.0); WHITE BLOOD COUNT (AUTO) 8.1 K/uL (4.3-11.0)
[2024-02-06 03:53] VITALS: BP 133/64; TEMP 98.4; O2SAT 98
[2024-02-06 04:25] LABS: CALCIUM, SERUM 9.2 mg/dL (8.5-10.1); CARBON DIOXIDE 26 mmol/L (21-32); CHLORIDE 103 mmol/L (98-107); CREATININE 0.8 mg/dL (0.6-1.3); GLUCOSE 94 mg/dL (74-106); SODIUM SERUM 136 mmol/L (136-145); UREA NITROGEN, BLOOD 20 mg/dL (7-18)
[2024-02-06 04:30] LABS: LACTIC ACID 0.9 mmol/L (0.4-2.0)
[2024-02-06 04:39] LABS: ALANINE AMINOTRANSFERASE 20 U/L (12-78); ALBUMIN 2.4 g/dL (3.4-5.0); ALKALINE PHOSPHATASE 108 U/L (46-116); ASPARTATE AMINOTRANSFERASE 11 U/L (15-37); BILIRUBIN,TOTAL 0.6 mg/dL (0.2-1.0); NT-PRO BNP 104 pg/mL (0-125); TOTAL PROTEIN, SERUM 7.4 g/dL (6.4-8.2)
== END 2024-02-06 03:54 | disposition home or self-care (01) ==
LOC: ER 02:57
DX: N40.0 Benign prostatic hyperplasia without lower urinary tract symptoms (principal); T83.091A Other mechanical complication of indwelling urethral catheter, initial encounter; R79.0 Abnormal level of blood mineral; R07.9 Chest pain, unspecified; Z87.448 Personal history of other diseases of urinary system; Y84.6 Urinary catheterization as the cause of abnormal reaction of the patient, or of later complication, without mention of misadventure at the time of the procedure; Y92.89 Other specified places as the place of occurrence of the external cause
CPT/HCPCS: 36415; 80053-TC; 83605-TC; 83880; 84484-TC; 85025-TC

== ENCOUNTER 2024-09-01 12:04 | Inpatient (IN) | payer MEDICARE, BC ==
[~2024-09-01] VITALS: Ht 172.7 cm; Wt 66.2 kg
[2024-09-01] VITALS (10 sets, daily range): BP systolic 105–142; BP diastolic 53–68; TEMP 98.6–100.7; O2SAT 94–99
[2024-09-01 13:33] LABS: APPEARANCE,URINE CLEAR (CLEAR); BILIRUBIN,URINE NEGATIVE (NEGATIVE); BLOOD, URINE 3+ Ery/uL (NEGATIVE); COLOR,URINE YELLOW (YELLOW); KETONES,URINE NEGATIVE (NEGATIVE); LEUKOCYTE ESTERASE ,URINE 1+ (NEGATIVE); NITRITE, URINE POSITIVE (NEGATIVE); PROTEIN,URINE TRACE mg/dl (NEGATIVE); UGLUCOSE NEGATIVE (NEGATIVE); UROBILINOGEN,URINE 0.2 EU/dL (0.2)
[2024-09-01 13:52] LABS: RBC,URINE 21-50 /HPF (0-2)
[2024-09-01 13:53] LABS: ADD URINE CULTURE YES; BACTERIA,URINE 2+ /HPF (None Seen); SQUAMOUS EPITHELIAL CELL,UR 0-2 /HPF (None Seen)
[2024-09-01 13:56] LABS: CALCIUM, SERUM 8.9 mg/dL (8.5-10.1); CARBON DIOXIDE 25 mmol/L (21-32); CHLORIDE 104 mmol/L (98-107); CREATININE 1.5 mg/dL (0.6-1.3); GLUCOSE 123 mg/dL (74-106); SODIUM SERUM 141 mmol/L (136-145); UREA NITROGEN, BLOOD 29 mg/dL (7-18)
[2024-09-01 14:01] LABS: INR 1.4 (0.91-1.10); PARTIAL THROMBOPLASTIN TIME 30.5 SEC (24.3-34.3); PROTHROMBIN TIME 14.5 SECS (9.2-11.1)
[2024-09-01 14:02] LABS: ALANINE AMINOTRANSFERASE 11 U/L (12-78); ALBUMIN 3.1 g/dL (3.4-5.0); ALKALINE PHOSPHATASE 111 U/L (46-116); ASPARTATE AMINOTRANSFERASE 18 U/L (15-37); BILIRUBIN,DIRECT 0.2 mg/dL (0.0-0.2); BILIRUBIN,TOTAL 0.6 mg/dL (0.2-1.0); TOTAL PROTEIN, SERUM 7.9 g/dL (6.4-8.2)
[2024-09-01 14:13] LABS: LACTIC ACID 2.3 mmol/L (0.4-2.0)
[2024-09-01] MEDS: IV NS 0.9% 1,000 ML BAG IV ONE (14:25)
[2024-09-01] MEDS: CEFTRIAXONE 1GM BAG (ER ONLY) 50 ML IV ONE (14:26)
[2024-09-01] MEDS ORDERED: hydrALAZINE HCL IV 20 MG VIAL IV PRN (14:30)
[2024-09-01] MEDS ORDERED: ONDANSETRON HCL/PF 4 MG/2 ML VIAL IVP PRN (14:30)
[2024-09-01] MEDS ORDERED: ROSU5TAB13 PO (15:23)
[2024-09-01] MEDS ORDERED: CLOP75TA15 PO (15:23)
[2024-09-01 15:47] LABS: BASOPHILS % (AUTO) 0.2 % (0.0-2.0); HEMATOCRIT 44 % (39-51); HEMOGLOBIN 14.4 g/dL (13.5-17.5); LYMPHOCYTES % (AUTO) 1.7 % (20.0-44.0); MEAN CORPUSCULAR HEMOGLOBIN 29 PG (26.0-33.0); MEAN CORPUSCULAR HGB CONC 33 g/dl (31.0-36.0); MEAN CORPUSCULAR VOLUME 88 fL (80-96); MONOCYTES % (AUTO) 5.5 % (2.0-12.0); NEUTROPHILS % (AUTO) 92.6 % (43.0-81.0); PLATELET COUNT (AUTO) 223 K/uL (150-450); RED BLOOD CELL COUNT(AUTO) 4.93 MIL/uL (4.5-6.0); WHITE BLOOD COUNT (AUTO) 14.3 K/uL (4.3-11.0)
[2024-09-01] MEDS ORDERED: MORPHINE SULFATE INJ 4 MG/ML DISP.SYRIN IV PRN (16:30)
[2024-09-01] MEDS: DOCUSATE SODIUM LIQ 100 MG/10 ML UDC PO SCH (17:00)
[2024-09-01] MEDS: IV NS 0.9% 1,000 ML IV SCH (18:28)
[2024-09-01] MEDS: ACETAMINOPHEN 325 MG TABLET PO PRN (19:31)
[2024-09-01] MEDS: HEPARIN SODIUM, PORCINE 5000 UNITS/1 ML VIAL SQ SCH (21:13)
[2024-09-01] MEDS ORDERED: TAMSULOSIN PO SCH (22:00)
[2024-09-02] VITALS (22 sets, daily range): BP systolic 91–133; BP diastolic 49–80; TEMP 98–99.3; O2SAT 95–99
[2024-09-02 05:08] LABS: BASOPHILS % (AUTO) 0.3 % (0.0-2.0); HEMATOCRIT 42 % (39-51); HEMOGLOBIN 13.7 g/dL (13.5-17.5); LYMPHOCYTES # (AUTO) 0.7 K/uL (0.8-4.8); LYMPHOCYTES % (AUTO) 7.2 % (20.0-44.0); MEAN CORPUSCULAR HEMOGLOBIN 29 PG (26.0-33.0); MEAN CORPUSCULAR HGB CONC 33 g/dl (31.0-36.0); MEAN CORPUSCULAR VOLUME 89 fL (80-96); MONOCYTES # (AUTO) 0.8 K/uL (0.1-1.30); MONOCYTES % (AUTO) 8.4 % (2.0-12.0); NEUTROPHILS # (AUTO) 8.4 K/uL (1.8-8.9); NEUTROPHILS % (AUTO) 84.1 % (43.0-81.0); PLATELET COUNT (AUTO) 176 K/uL (150-450); RED BLOOD CELL COUNT(AUTO) 4.68 MIL/uL (4.5-6.0); RED CELL DISTRIBUTION WIDTH 14.7 % (11.5-15.0); WHITE BLOOD COUNT (AUTO) 9.9 K/uL (4.3-11.0)
[2024-09-02 05:24] LABS: ALBUMIN 2.5 g/dL (3.4-5.0); BILIRUBIN,TOTAL 0.5 mg/dL (0.2-1.0); CALCIUM, SERUM 8.3 mg/dL (8.5-10.1); MAGNESIUM 2.1 mg/dL (1.8-2.4); POTASSIUM 3.7 mmol/L (3.5-5.1); TOTAL PROTEIN, SERUM 6.6 g/dL (6.4-8.2)
[2024-09-02] MEDS: POLYETHYLENE GLYCOL 3350 17 GM POWD.PACK PO SCH (09:11)
[2024-09-02] MEDS: CEFTRIAXONE 1 G in IV D5W 50 ML IV SCH (09:11)
[2024-09-02] MEDS: ASPIRIN EC 81 MG TABLET.DR PO SCH (09:12)
[2024-09-02] MEDS: ATORVASTATIN 10 MG TABLET PO SCH (09:12)
[2024-09-02] MEDS: CLOPIDOGREL BISULFATE 75 MG TABLET PO SCH (09:12)
[2024-09-03] VITALS: BP 120/51; TEMP 97.9; O2SAT 95
[2024-09-03 04:00] VITALS: BP 105/56; TEMP 97.9; O2SAT 97
[2024-09-03 08:00] VITALS: BP 104/78; TEMP 98.2; O2SAT 98
[2024-09-03 12:00] VITALS: BP 116/62; TEMP 97.9; O2SAT 97
[2024-09-03 16:51] VITALS: BP 112/68; TEMP 97.9; O2SAT 98
[2024-09-03 20:00] VITALS: BP 127/69; TEMP 98.2; O2SAT 96
[2024-09-04] VITALS: BP 134/64; TEMP 98.1; O2SAT 98
[2024-09-04 05:00] VITALS: BP 136/86; TEMP 97.7; O2SAT 98
[2024-09-04 06:24] LABS: BASOPHILS % (AUTO) 0.6 % (0.0-2.0); EOSINOPHILS # (AUTO) 0.3 K/uL (0.0-0.7); EOSINOPHILS % (AUTO) 4.9 % (0.0-6.0); HEMATOCRIT 36 % (39-51); HEMOGLOBIN 11.9 g/dL (13.5-17.5); LYMPHOCYTES # (AUTO) 0.7 K/uL (0.8-4.8); LYMPHOCYTES % (AUTO) 12.8 % (20.0-44.0); MEAN CORPUSCULAR HEMOGLOBIN 29 PG (26.0-33.0); MEAN CORPUSCULAR HGB CONC 33 g/dl (31.0-36.0); MEAN CORPUSCULAR VOLUME 87 fL (80-96); MONOCYTES # (AUTO) 0.7 K/uL (0.1-1.30); MONOCYTES % (AUTO) 13.2 % (2.0-12.0); NEUTROPHILS # (AUTO) 3.7 K/uL (1.8-8.9); NEUTROPHILS % (AUTO) 68.5 % (43.0-81.0); PLATELET COUNT (AUTO) 175 K/uL (150-450); RED BLOOD CELL COUNT(AUTO) 4.18 MIL/uL (4.5-6.0); RED CELL DISTRIBUTION WIDTH 14.6 % (11.5-15.0); WHITE BLOOD COUNT (AUTO) 5.3 K/uL (4.3-11.0)
[2024-09-04 06:33] LABS: CALCIUM, SERUM 7.9 mg/dL (8.5-10.1); CREATININE 0.7 mg/dL (0.6-1.3); PHOSPHORUS 2.2 mg/dL (2.5-4.9); POTASSIUM 3.3 mmol/L (3.5-5.1)
[2024-09-04 08:00] VITALS: BP 132/84; TEMP 97.7; O2SAT 97
[2024-09-04] MEDS: POTASSIUM CHLORIDE 20 MEQ TAB.PRT.SR PO ONE (09:01)
[2024-09-04] MEDS ORDERED: AMOX500C2 PO (11:02)
[2024-09-04 12:00] VITALS: BP 137/77; TEMP 97.7; O2SAT 97
== END 2024-09-04 13:16 | disposition home or self-care (01) | DRG 871 ==
LOC: ER 12:13 → TELE 16:14 → ICU 19:02 → TELE 09-02 18:51
PROVIDERS: ADMIT Internal Medicine; ATTEND Internal Medicine
DX: A41.9 Sepsis, unspecified organism (principal); G93.41 Metabolic encephalopathy; N17.0 Acute kidney failure with tubular necrosis; N39.0 Urinary tract infection, site not specified; R65.20 Severe sepsis without septic shock; E78.5 Hyperlipidemia, unspecified; I25.10 Atherosclerotic heart disease of native coronary artery without angina pectoris; I10 Essential (primary) hypertension; J44.9 Chronic obstructive pulmonary disease, unspecified; R53.1 Weakness; N40.1 Benign prostatic hyperplasia with lower urinary tract symptoms; B96.20 Unspecified Escherichia coli [E. coli] as the cause of diseases classified elsewhere; Z87.891 Personal history of nicotine dependence
CPT/HCPCS: 36415; 71045-TC; 80048-TC; 80053-TC; 80076-TC; 81001; 83605-TC; 83735-TC; 84100-TC; 85025-TC; 85730-TC; 87040-TC; 87081-TC; 87086-TC; 87186-TC; G0378; J0696; J1644; J7030; J7060